=== PATIENT | female | born 1985 | race Caucasian/White ===

== ENCOUNTER 2016-12-08 16:54 | Emergency (ER) | payer OTHER ==
[2016-12-08] MEDS ORDERED: IBUPROFEN 600 MG TABLET PO ONE (17:23)
[2016-12-08] MEDS ORDERED: ACETAMINOPHEN 325 MG TABLET PO ONE (17:23)
[2016-12-08] MEDS ORDERED: OSELTAMIVIR PHOSPHATE 75 MG CAPSULE PO ONE (19:35)
--- NOTE | 2016-12-08 19:59 | ER NURSING DOCUMENTATION ---
Nurse's Notes [facility] Name:Kathy Waterman Age:31 yrs Sex:Female :1985 Arrival Date:12/08/2016 Time:16:54 Bed1 Private MD:April King Diagnosis:Influenza;Viral Syndrome - Influenza;Dehydration Presentation: 12/08 17:05 Presenting complaint: Patient states: Fever, aches, nausea, coughing. Transition of tg care: patient was not received from another setting of care. 17:05 Acuity: JOE 3 tg 17:05 Method Of Arrival: Private Vehicle tg Triage Assessment: 17:29 Pertinent positives: arthralgias, cough, nausea, sinus congestion, sinus drainage, tg Pertinent negatives:. General: Appears uncomfortable, Behavior is cooperative. Pain: Complains of pain in General muscle aches. EENT: Nares reddened, irritated. Neuro: Level of Consciousness is awake, alert. Cardiovascular: Capillary refill < 3 seconds. Respiratory: Respiratory effort is even, unlabored. GI: Reports vomiting. Derm: Skin temperature is warm. Historical: - Allergies: Phenergan; - Home Meds: 1. None - PMHx: None; - PSHx: None; - Tetanus: < 10 years. - Ebola Screening: : Patient negative for fever greater than or equal to 101.5 degrees Fahrenheit, and additional compatible Ebola Virus Disease symptoms. Patient denies exposure to infectious person. Patient denies travel to an Ebola-affected area in the 21 days before illness onset. No symptoms or risks identified at this time. . - Immunization history: Flu Vaccine < 1 year. - Social history: Smoking status: Patient states was never smoker of tobacco. Screenin:32 Infectious Disease Risk Unable to Obtain. Abuse screen: Denies threats or abuse. Denies tg injuries from another. Nutritional screening: No deficits noted. Assessment: 18:23 Reassessment: Patient states feeling better. tg Vital Signs: 16:57 BP 97 / 72; Pulse 126; Resp 18; Temp 101.1; Pulse Ox 91% on R/A; Weight 63.5 kg (R); tg Height 5 ft. 6 in. (167.64 cm) (R); Pain 5/10; 17:29 BP 108 / 62; Pulse 122; Pulse Ox 92% on R/A; tg 18:22 Temp 98.5(O); tg 18:24 BP 98 / 65; Pulse 105; Resp 16; tg 16:57 Body Mass Index 22.60 (63.50 kg, 167.64 cm) tg [place] Coma Score: 17:30 Eye Response: spontaneous(4). Verbal Response: oriented(5). Motor Response: obeys cd commands(6). Total: 15. ED Course: 16:57 Patient arrived in ED. arc 16:57 April King DO is Private Physician. arc 17:02 Marshall Cordoba MD is Attending Physician. cd 17:05 Maninder Toledo RN is Primary Nurse. tg 17:06 Triage completed. tg 17:28 Valuables Remains with patient Patient has correct armband on for positive tg identification. Bed in low position. Call light in reach. Side rails up X 1. 18:54 Report given to OSWALD Daley. tg 19:23 April King DO is Referral Physician. cd Administered Medications: Completed: NS 0.9% 1000 ml IV at bolus once 17:25 Drug: Acetaminophen 650 mg; Route: PO; tg 18:22 Follow up: Temp 98.5 Oral; Response: Temperature is decreased tg 17:25 Drug: Ibuprofen 600 mg; Route: PO; tg 18:23 Follow up: Response: No adverse reaction tg 17:26 Drug: NS 0.9% 1000 ml; Route: IV; Rate: bolus; Site: right antecubital; Delivery: tg [place] Tubing; 18:22 Follow up: IV Status: Completed infusion; IV Intake: 1000ml tg 18:23 Drug: NS 0.9% 1000 ml; Route: IV; Rate: bolus; Site: right antecubital; tg 19:55 Follow up: IV Status: Completed infusion; Infusion discontinued; IV Intake: 1000ml mk4 19:30 Drug: Tamiflu 75 mg; Route: PO; ma 19:56 Follow up: Response: No adverse reaction mk4 19:54 Drug: Zofran 1 tablet; Route: PO; mk4 19:57 Follow up: Response: Pharmacy closed - take home med pack mk4 Intake: 18:22 IV: 1000ml; Total: 1000ml. tg 19:55 IV: 1000ml; Total: 2000ml. mk4 Output: 18:23 Urine: 0ml; Total: 0ml. tg Outcome: 19:24 Discharge ordered by . marvin 19:59 Patient left the ED. mk4 Signatures: Maninder Toledo RN RN tg Abuso, Melanie, RN Marshall Booker ma, MD MD cd King, Melody mk4 Chew, Amelia, Pepito Reg arc
--- NOTE | 2016-12-08 19:59 | ER PHYSICIAN DOCUMENTATION ---
Physician Documentation [facility] Name:Kathy Waterman Age:31 yrs Sex:Female :1985 Arrival Date:12/08/2016 Time:16:54 Bed1 Private MD:April King ED, Chris Disposition: 12/08/16 19:24 Discharged to Home/Self Care. Impression: Influenza, Viral Syndrome - Influenza, Dehydration. - Condition is Good. - Discharge Instructions: DEHYDRATION (6y-Adult), INFLUENZA (Adult). - Prescriptions for Tamiflu 75 mg Oral Capsule - take 1 capsule by ORAL route every 12 hours for 5 days; 10 capsule. - Medical Reconciliation form form. - Follow up: April King DO; When: 7 - 10 days; Reason: Recheck today's complaints, Continuance of care. - Problem is new. - Symptoms have improved. - Notes: Take Tamiflu 75mg by mouth every 12 hours for 5 days. Take Zofran 4mg by mouth every 6 hours as needed for nausea or vomiting Drink 2 -3 quarts of water or Gatorade every day to stay well hydrated Take Ibuprofen 600mg by mouth every 6 hours with food for 2 - 3 days to keep your temp down. Take Tylenol 650mg by mouth every 6 hours for 2 - 3 days too! Next dose of Tylenol and Ibuprofen will be at 11:00 PM tonight...then 6:00 Am in the morning HPI: 12/08 17:00 This 31 yrs old Female presents to ER via Private Vehicle with complaints of cd Fever. 17:00 The patient or guardian reports cough, that is intermittent, described as mild, with no cd sputum, flu symptoms, arthralgias, myalgias, no appetite, headache, sore throat and fever and chills. Onset: The symptom(s)/episode began/occurred acutely, yesterday. Associated signs and symptoms: Pertinent positives: fever, nausea, rhinorrhea, sore throat, vomiting. The patient reports fever, that was measured at 103 degrees Fahrenheit, with an emergency department temperature of 101 degrees Fahrenheit. Associated signs and symptoms: Pertinent negatives: abdominal pain, altered mental status, chest pain, diarrhea. Historical: - Allergies: Phenergan; - Home Meds: 1. None - PMHx: None; - PSHx: None; - Tetanus: < 10 years. - Ebola Screening: : Patient negative for fever greater than or equal to 101.5 degrees Fahrenheit, and additional compatible Ebola Virus Disease symptoms. Patient denies exposure to infectious person. Patient denies travel to an Ebola-affected area in the 21 days before illness onset. No symptoms or risks identified at this time. . - Immunization history: Flu Vaccine < 1 year. - Social history: Smoking status: Patient states was never smoker of tobacco. ROS: 17:30 Constitutional: Positive for chills, fever, malaise, poor PO intake. cd 17:30 ENT: Positive for rhinorrhea, sinus congestion, sore throat, Negative for ear pain, sinus pain. 17:30 Respiratory: Positive for cough, with no reported sputum, Negative for pleurisy, shortness of breath, wheezing. 17:30 Abdomen/GI: Positive for nausea, anorexia, Negative for abdominal pain, diarrhea, hematemesis, black/tarry stool, rectal bleeding. 17:30 MS/extremity: Positive for muscle aches. 17:30 Neuro: Positive for headache, Negative for altered mental status. 17:30 All other systems are negative. Exam: 17:30 Abdomen/GI: Soft, non-tender, with normal bowel sounds. No distension or tympany. No cd guarding or rebound. No evidence of tenderness throughout. Skin: Warm, dry with normal turgor. Normal color with no rashes, no lesions, and no evidence of cellulitis. MS/ Extremity: Pulses equal, no cyanosis. Neurovascular intact. Full, normal range of motion. 17:30 Neuro: Awake and alert, GCS 15, oriented to person, place, time, and situation. cd Cranial nerves II-XII grossly intact. Motor strength 5/5 in all extremities. Sensory grossly intact. Cerebellar exam normal. Normal gait. 17:30 Constitutional: The patient appears alert, awake, non-diaphoretic, non-toxic, well developed, well nourished, listless, in obvious distress, mildly distressed. 17:30 Head/face: Sinus tenderness, is not appreciated. 17:30 ENT: TM's: are normal, Nose: nasal drainage, that is minimal, and is seen coming from both nares, that is clear, Posterior pharynx: Tonsils: are normal in appearance, with erythema, with exudate, erythema, that is mild, exudate, is not appreciated, peritonsillar mass, is not appreciated. 17:30 Neck: ROM/movement: Meningeal signs: are not present. 17:30 Cardiovascular: Rate: tachycardic, actual rate is 120 bpm, Rhythm: regular, Pulses: no pulse deficits are appreciated, Heart sounds: normal. 17:30 Respiratory: the patient does not display signs of respiratory distress, Respirations: normal, no acute changes, Breath sounds: are normal, clear throughout. 17:30 Neuro: Orientation: is normal, to person, place & time. Mentation: is normal, Memory: is normal, Cranial nerves: CN II- XII are normal as tested, Motor: moves all fours, Sensation: is normal. Vital Signs: 16:57 BP 97 / 72; Pulse 126; Resp 18; Temp 101.1; Pulse Ox 91% on R/A; Weight 63.5 kg (R); tg Height 5 ft. 6 in. (167.64 cm) (R); Pain 5/10; 17:29 BP 108 / 62; Pulse 122; Pulse Ox 92% on R/A; tg 18:22 Temp 98.5(O); tg 18:24 BP 98 / 65; Pulse 105; Resp 16; tg 16:57 Body Mass Index 22.60 (63.50 kg, 167.64 cm) tg [place] Coma Score: 17:30 Eye Response: spontaneous(4). Verbal Response: oriented(5). Motor Response: obeys cd commands(6). Total: 15. MDM: 17:00 Data interpreted: Pulse oximetry: on room air is 92 %. Interpretation: normal. cd 17:02 Patient medically screened. cd 17:20 Antibiotic administration: Not indicated, the patient does not have an appreciated cd infiltrate. Differential diagnosis: flu, URI, viral Infection, bacterial infection, URI, pneumonia. Data reviewed: vital signs, nurses notes, old medical records, and as a result, I will continue to observe the patient, administer IV fluids, NS bolus, NS maintenence, give anti-pyretics and Tamiflu. 19:00 Counseling: I had a detailed discussion with the patient and/or guardian regarding: the cd historical points, exam findings, and any diagnostic results supporting the discharge/admit diagnosis, lab results, the need for outpatient follow up, for a recheck, with the patient's primary care provider, to return to the emergency department if symptoms worsen or persist or if there are any questions or concerns that arise at home. Response to treatment: the patient's symptoms have markedly improved after treatment, the patient's condition has returned to base line, the patient is now symptom free, patient is well hydrated. and as a result, I will discharge patient. 12/08 17:21 Order name: INFLUENZA A/B; Complete Time: 17:50 EDMS 12/08 17:50 Interpretation: Normal. cd Dispensed Medications: Completed: NS 0.9% 1000 ml IV at bolus once 17:25 Drug: Acetaminophen 650 mg; Route: PO; tg 18:22 Follow up: Temp 98.5 Oral; Response: Temperature is decreased tg 17:25 Drug: Ibuprofen 600 mg; Route: PO; tg 18:23 Follow up: Response: No adverse reaction tg 17:26 Drug: NS 0.9% 1000 ml; Route: IV; Rate: bolus; Site: right antecubital; Delivery: tg [place] Tubing; 18:22 Follow up: IV Status: Completed infusion; IV Intake: 1000ml tg 18:23 Drug: NS 0.9% 1000 ml; Route: IV; Rate: bolus; Site: right antecubital; tg 19:55 Follow up: IV Status: Completed infusion; Infusion discontinued; IV Intake: 1000ml mk4 19:30 Drug: Tamiflu 75 mg; Route: PO; ma 19:56 Follow up: Response: No adverse reaction mk4 19:54 Drug: Zofran 1 tablet; Route: PO; mk4 19:57 Follow up: Response: Pharmacy closed - take home med pack mk4 Signatures: Maninder Toledo RN RN Ladan Pina RN RN ma Daley, Chris, MD MD cd King, Melody 4
[2016-12-08] MEDS ORDERED: ONDANSETRON ODT PREPAC 4 MG TAB.RAPDIS PO ONE (20:04)
== END 2016-12-08 19:59 | disposition home or self-care (01) ==
LOC: ER 16:54
DX: J11.1 Influenza due to unidentified influenza virus with other respiratory manifestations (principal); E86.0 Dehydration; R11.0 Nausea
CPT/HCPCS: 87449; 96360; 96361; 99283